=== PATIENT | female | born 1975 | race Caucasian/White ===

== ENCOUNTER 2018-04-10 10:06 | Inpatient (IN) | payer MEDICAID, OTHER ==
[2018-04-10 11:17] VITALS: BP 134/81
== END 2018-04-10 12:42 | disposition left against medical advice (07) | DRG 770 ==
LOC: SRC 10:06
PROVIDERS: ADMIT Family Medicine Addiction Medicine; ATTEND Family Medicine Addiction Medicine
DX: F10.239 Alcohol dependence with withdrawal, unspecified (principal); Z75.3 Unavailability and inaccessibility of health-care facilities